=== PATIENT | male | born 2000 | race Caucasian/White ===

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

== ENCOUNTER 2019-07-29 05:56 | Observation (INO) | payer OTHER ==
[~2019-07-29] VITALS: Ht 185.4 cm; Wt 86.2 kg
[~2019-07-29 05:56] MED LIST: NORCO 5-325 TA1 EACH PO; REMERON30 MG PO; ULTRAM50 MG PO
[2019-07-29] MEDS ORDERED: AMITRIPTYLINE H50 MG PO (06:13)
[2019-07-29] MEDS ORDERED: IBUPROFEN600 MG PO (08:58)
[2019-07-29] MEDS ORDERED: HYDROCODON-ACE1 EA10 PO (08:58)
[2019-07-29] MEDS ORDERED: TYLENOL EXTRA500 MG PO (08:58)
--- NOTE | 2019-07-29 09:30 | NUR ---
07/29/19 0930 Rima Paganfany [id number] PATIENT TO PACU, APPEARS SLEEPING, NOT RESPONDING TO STIMULI. 100% 6L NC, EVEN RESPIRATIONS. DRESSING INTACT TO ALPHONSE AREA. 0859 PATIENT APPEARED TO BE HAVING SEIZURE, DR. COVINGTON TO BEDSIDE AND AIRAM HERMOSILLO CRNA TO BEDSIDE, ALONG WITH CHARGE NURSE ANDRA. AIRWAY PROTECTED OPEN WITH JAW THRUST. 2MG IV VERSED ADMINISTERED. SEIZURE APPEARED TO STOP. 904 SEIZURE APPEARS TO HAVE STARTED, CALL CARE TEAM BACK TO BEDSIDE. 2MG IV VERSED. SEIZURE APPEARED TO STOP. NOTED HR INCREASSES WITH SEIZURE. NO INCONTINENCE, NO TRAUMA NOTED TO MOUTH. DR. PASTOR TO [facility] WHO NOTED PATIENT HYPERFLEXIC.
--- NOTE | 2019-07-29 10:00 | NUR ---
PT ARRIVED TO CCU FROM PACU VIA STRETCHER. PT WAS CONFUSED AND DISORINATED TO SURROUNDINGS. PT ADMITTED TO CCU, BEDRAILS UP, CALL LIGHT IN REACH, AND GUARDS AT BEDSIDE. PT EXPERIENCING DYSPHASIA AFTER SURGERY, COMMUNICATES WITH SIGN LANGUAGE AND USING PEN AND PAPER. VITALS ARE STABLE. WILL CONTINUE TO MONITOR.
--- NOTE | 2019-07-29 11:00 | NUR ---
PT ALERT AND ORIENTATED, IS CONTNIUING TO USE PEN AND PAPER FOR COMMUNICATION. ASSESSMENT COMPLETED. WEAKNESS IN LUE, DR. MORROW HAS BEEN NOTIFIED. VITAL SIGNS STABLE. PT IS IN BED WATCHING TV, GUARD RAILS UP, AND CALL LIGHT WITHIN REACH. [facility] GUARDS AT BEDSIDE. WILL CONTINUE TO MONITOR.
--- NOTE | 2019-07-29 11:21 | NUR ---
Spoke with Dilan and correctional officers. Pt denies needs to return to [facility]. Shakes his head yes or no. Makes a garbled sound when asked if he is unable to speak. Denies use of DME. Per correctional officers he will return to [facility] informary when released.
--- NOTE | 2019-07-29 12:30 | NUR ---
PATIENT RESTING IN BED WITH THE GAURDS AT THE BEDSIDE. PATIENT WEARING LEG SHACKLES AT THIS TIME. PATIENT VOIDED AND URINAL EMPTIED. PATIENT IS MORE ALERT AND IS TALKING BETTER. LIME TRIMMER STRENGTH IS EQUAL IN EXTREMITIES. NO WEAKNESS NOTED. WILL CONTINUE TO CLOSELY MONITOR.
--- NOTE | 2019-07-29 14:00 | NUR ---
PATIENT RESTING IN BED AT THIS TIME WITH 2 GAURDS AT THE BEDSIDE. PATIENT DENIES ANY NEEDS. PATIENT CONTINUES TO HAVE DIFFICULTY FORMULATING WORDS, BUT HAS IMPROVED SINCE ADMISSION. WILL CONTINUE TO CLOSELY MONITOR.
--- NOTE | 2019-07-29 15:21 | NUR ---
MED REC COMPLETE
--- NOTE | 2019-07-29 15:26 | NUR ---
PATIENT CALLED REPORTING PAIN TO SURGICAL INCISION. CALLED MD PASTOR. PER MD MAY GIVE PRN PAIN MEDICATIONS. REVIEW MAR FOR ORDERES. WILL ADVANCE PATIENTS DIET AT THIS TIME.
--- NOTE | 2019-07-29 15:50 | NUR ---
PATIENT REPORTING 8/10 PAIN TO SURGICAL INCISION. GAVE PRN PAIN MEDICATION. PATIENT CONTINUES TO HAVE DIFICULTY SPEAKING, BUT IS ALERT AND ORIENTED AND WRITING WITH NO ISSUES. ANDRAE AT THE BEDSIDE. ROSALINE X2. WOUND CHECKED AND REMAINS C/D/I. WILL CONTINUE TO CLOSELY MONITOR.
--- NOTE | 2019-07-29 17:00 | NUR ---
PATIENET STATES PAIN IS IMPROVED WITH PRN PAIN MEDICATION. PATIENT NOW REPORTS PAIN 5/10. CLEAR LIQUID TRAY AT THE BEDSIDE. 2 GUARDS AT THE BEDSIDE. WILL CONTINUE TO CLOSELY MONITOR. NO OTHER NEEDS AT THIS TIME.
--- NOTE | 2019-07-29 18:27 | NUR ---
PATIENT TOELRATED CLEAR LIQUID TRAY. PATIENT DENEIS NAUSEA. ORDERED PATIENT SOME MORE FOOD. PATIENT DENIES ANY OTHER NEEDS. PATIENT SPEECH CONTINUES TO IMPROVE. PATIENT HAS NOT HAD ANY SIEZURE LIKE ACTIVITY SINCE ADMISSION. WILL CONTINUE TO CLOSELY MONITOR.
--- NOTE | 2019-07-29 19:21 | NUR ---
PT REPORT RECIEVED FROM CCU RN, CARE OF PATIENT ASSUMED AT THIS TIME.
--- NOTE | 2019-07-29 19:33 | NUR ---
IN ROOM TO ASSESS PATIENT, PT ALERT AND ORIENTED, RESPONDS TO QUESTIONS APPROPRIATELY. PT COMPLAINS HE IS FEELING SOME WEAKNESS ON LEFT SIDE, SPEECH SLIGHTLY SLURRED. PT HAS EQUAL END LATHE OPERATOR WITH BOTH HANDS, EQUAL SENSATION, ABLE TO HOLD BOTH ARMS OUT FOR A FULL COUNT WITH NO DRIFT. PLAN OF CARE FOR SHIFT DISCUSSED. PT VERBALIZED UNDERSTANDING OF PLAN. REPOSITIONED ON TO LEFT SIDE. CALL LIGHT WITHIN REACH. GAURDS REMAIN AT BEDSIDE.
--- NOTE | 2019-07-29 20:45 | NUR ---
PT STOOD AT BEDSIDE TO VOID. STAND BY ASSIST ONLY REQUIRED. STABLE ON FEET. BACK IN BED, REPOSITIONED. CALL LIGHT WITHIN REACH. NO FURTHER NEEDS AT THIS TIME.
--- NOTE | 2019-07-29 22:00 | NUR ---
PT RESTING WITH EYES CLOSED. BREATHING EVEN AN UNLABORED. GAURDS REMAIN AT BEDSIDE. NO NEEDS AT THIS TIME.
--- NOTE | 2019-07-29 22:59 | NUR ---
IN TO ADMINISTER PAIN MEDICATION AND ASSIST THE PT WITH REPOSITIONING. ASSESSMENT COMPLETED. PT HAS CALL LIGHT WITHIN REACH, GAURDS REMAIN AT BEDSIDE. NO FURTHER NEEDS AT THIS TIME.
--- NOTE | 2019-07-30 01:00 | NUR ---
PT RESTING IN HOSPITAL BED WITH EYES CLOSED, BREATHING EVEN AND UNLABORED. GAURDS REMAIN AT BEDSIDE. CALL LIGHT WITHIN REACH, NO FURTHER ASSESSED NEEDS A THIS TIME.
--- NOTE | 2019-07-30 02:30 | NUR ---
PT CONTINUES TO REST WITH EYES CLOSED. NO CHANGES IN VITAL SIGNS. NO SIGNS/ SYMPTOMS OF SEIZURE LIKE ACTIVITY. CALL LIGHT WITHIN REACH. NO FURTHER NEEDS AT THIS TIME
--- NOTE | 2019-07-30 03:33 | NUR ---
IN ROOM FOR ASSESSMENT. PT SPEECH IS NORMAL, NO COMPLAINTS OF PAIN AT THIS TIME. PT ALERT AND ORIENTED, DENIES ANY LEFT SIDED WEAKNESS. NEUROLOGICAL ASSESSMENT WNL. PT ASSISTED WITH REPOSITIONING IN STRETCHER. CALL LIGHT WITHIN REACH. NO FURTHER NEEDS AT THIS TIME.
--- NOTE | 2019-07-30 05:57 | NUR ---
PT HEART RATE DOWN TO 39 WHILE PATIENT SLEEPING DEEPLY. EASY TO AROUSE, PT IS ASYMPTOMATIC. NO COMPLAINTS OF DIZZINESS, PAIN OR DISCOMFORT AT THIS TIME.
--- NOTE | 2019-07-30 06:37 | NUR ---
PT AMBULATED TO BATHROOM IN ATTEMPT TO URINATE. STATES HE FEELS LIKE HE HAS TO PEE, BUT THE PRESSURE FROM TRYING TO URINATE WAS CAUSING 7/10 PAIN AT INCISION SITE. PAIN MEDICATION GIVEN. PLAN TO ATTEMPT TO URINATE AFTER PAIN MEDICATION BEGINS TO TAKE AFFECT.
--- NOTE | 2019-07-30 07:30 | NUR ---
Pt shift report received from production shift supervisor RN. Pt resting in bed with 2 guards at the bedside. No needs at this time.
[2019-07-30] MEDS ORDERED: KEPPRA500 MG PO (09:01)
--- NOTE | 2019-07-30 09:30 | NUR ---
Pt resting in bed, encouraged pt to get up and void. 2 guards at bedside. Pt shackles are in tack. Pt assessment completed. Pt reports pain from surgical incison, tolerable with rest at 4, pain increases to an 8 with activty. Breakfast was order. Vital signs completed. MD Clements saw patient. Will continue to monitor.
--- NOTE | 2019-07-30 11:00 | NUR ---
patient stated pain has increased. prn pain medication given. patient tolerated well. patient deneis any other needs at this time. will continue to closely monitor.
--- NOTE | 2019-07-30 12:30 | NUR ---
PATIENT REPORT CALLED TO [facility] RATNA ANGEL. ALL QUESTIONS ANSWERED. PLACED PRESCRIPTIONS AND DOCUMENTATIONS IN ENVELOPE AND SEALED. ALL QUESTIONS ANSWERED. MD COVINGTON IN TO SEE PATIENT PRIOR TO DISCJHARGE AND REVIEWED INSTRUCTIONS WITH PATIENT ABOUT WOUND CARE AND ACTIVITY RESTRICTIONS. LUNCH AT THE BEDSIDE. WILL CONTINUE TO CLOSELY MONITOR.
--- NOTE | 2019-07-30 12:45 | NUR ---
IV D'CD. Pt documentation give to guards, all belongs gathered, guards at bedside to assist pt with getting dressed to discharge. Pt was wheeled to the lobby in a wheelchair by nursing staff and [facility] guards.
--- NOTE | 2019-07-30 13:39 | PATH ---
[facility] [address] [place], [place] [address] Signed SPECIMEN(S): A PILONIDAL CYST SPECIMEN SOURCE: A. PILONIDAL CYST CLINICAL HISTORY: Pilonidal cyst. FINAL PATHOLOGIC DIAGNOSIS: Pilonidal cyst, excision: - Benign skin with underlying deep dermal granulation tissue formation, chronic inflammation, and fragments of hair, consistent with ruptured pilonidal cyst. NAL:cml:C2NR MICROSCOPIC EXAMINATION: Histologic sections of all submitted blocks are examined by light microscopy. These findings, together with the gross examination, support the pathologic diagnosis. GROSS DESCRIPTION: The specimen, labeled "KP" and "pilonidal cyst" on the requisition, is received in formalin and consists of a 4.2 x 2.6 x 1.5 cm portion of fibrofatty tissue with an attached 4 x 0.8 cm pink to echols wrinkled ellipse of skin. The skin surface demonstrates a linear dark red crease that measures 0.8 cm in length. The cut surfaces beneath this crease demonstrates an exposed cavity/tract that measures 1.8 x 1.3 x 1.2 cm. The tract contains abundant soft dark red tissue and multiple light hairs. The remaining cut surfaces of the specimen are mottled thomas-yellow. Warehouse Order Filler sections are submitted in cassette A1. SS (under the direct supervision of a pathologist) The Gross Description was prepared using a voice recognition system. The report was reviewed for accuracy; however, sound-alike word errors, addition and/or deletions may occur. If there is any question about this report, please contact Client Services. PERFORMING LABORATORY: The technical component was performed by [facility], [address] [place] [id number] (Location Manager: Diana Joseph MD; CLIA# [id number]). Professional interpretation was performed by PATIENT NAME: LAWANDA VALDES PATHOLOGY DATE OF : [birth year] REPORT #: [id number] PHYSICIAN: LETICIAYTE PATHOLOGY PCP: MARISSA GUAJARDO MD REPORT IS CONFIDENTIAL AND NOT TO BE RELEASED WITHOUT AUTHORIZATION [facility] [address] [place], [place] [address] Signed [facility], [facility] branch, [address] [address] (CLIA# [id number]). Diagnostician: Dennise Bhardwaj MD Pathologist Electronically Signed 07/30/2019 Copies: ~ PATIENT NAME: LAWANDA VALDES PATHOLOGY DATE OF : [birth year] REPORT #: [id number] PHYSICIAN: ALFREDO PATHOLOGY PCP: MARISSA GUAJARDO MD REPORT IS CONFIDENTIAL AND NOT TO BE RELEASED WITHOUT AUTHORIZATION
--- NOTE | 2019-07-30 18:31 | OR ---
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 POSTOPERATIVE DIAGNOSIS: Pilonidal disease internatal cleft at least two areas of sinus drainage. PROCEDURES: 1. Pilonidal cyst excision with irrigation. 2. Deep subcutaneous flap mobilization and midline reapproximation with primary closure. ANESTHESIA: General endotracheal; Airam Epps CRNA and local 20 mL of 0.25% Marcaine with epinephrine. INDICATION: This 19-year-old white man is a prisoner at [facility] and a patient of Dr. Guajardo and Tiffani Kwok. 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 It has been excoriated and had drainage. He has had persistent drainage from this area and clinical examination shows this likely to be a pilonidal sinus. He is admitted at this time to undergo definitive excision of the pilonidal cyst disease, whether large or small. The patient strongly prefers to avoid wound care dressing changes if possible and if primary closure is feasible, it will be undertaken in addition to the excision. He understands the risks of bleeding, infection, recurrent disease and other unforeseen complications and wished to proceed. FINDINGS: The dominant pilonidal sinus was quite obvious and had some debris within it, but no active abscess. Superior to that was another pilonidal sinus pit that was interrogated as well. Excision of the pilonidal cyst disease was undertaken down to the post-sacral fascia. All the wound packing was anticipated and attempt for closure was deemed reasonable based on his preferences and subcutaneous flaps were elevated a short distance laterally allowing for reapproximation of the midline subcutaneous tissue and a layered closure accomplished. Additionally, Dermabond was applied to the wound once closed. DESCRIPTION OF PROCEDURE: Electronically Signed By: AIRAM COVINGTON MD 07/30/19 1831 PATIENT NAME: LAWANDA VALDES OPERATIVE REPORT DATE OF : [birth year] REPORT #: [id number] PHYSICIAN: AIRAM COVINGTON MD PCP: MARISSA GUAJARDO MD REPORT IS CONFIDENTIAL AND NOT TO BE RELEASED WITHOUT AUTHORIZATION [facility] [address] [place], [place] [address] Signed The patient was brought to the operating room, given a general endotracheal anesthetic and placed in the prone jackknife position with all due care with careful padding of pressure points and so forth. The buttocks were taped apart and photographs were taken. The internatal cleft and perineal area posteriorly were clipped and prepared with a DuraPrep type solution. A lacrimal probe was passed through the superior pit as well as to the dominant inferior sinus. There appeared to be separate areas of pilonidal disease. An elliptical excision was undertaken with electrocautery down to the post-sacral fascia with all due care minimizing the amount of tissue excised. The cystic area was transected and nest of hairs was noted within it, but no abscess fluid proper. Irrigation was undertaken copiously. Flaps were developed superficial to the post-sacral fascia laterally on each side. The deep subcutaneous layer was then secured with interrupted 2-0 Vicryl suture including pexing to the posterior sacral fascia. The wound was closed in layers more fully after irrigation and Assurity there was no residual debris. The skin was then closed with a running subcuticular 4-0 Vicryl. The wound was covered with Dermabond down to the inferior aspect. Plain gauze dressing was then applied. The patient tolerated procedure well, was taken to recovery room in good condition. MD JAYCEE Mcintosh/KYARA /[id number] cc: MD Tiffani Zapata [facility] Copies: MARISSA GUAJARDO MD ~ Electronically Signed By: AIRAM COVINGTON MD 07/30/19 1831 PATIENT NAME: LUCIOMAGUELAWANDA JAMES OPERATIVE REPORT DATE OF : [birth year] REPORT #: [id number] PHYSICIAN: AIRAM COVINGTON MD PCP: MARISSA GUAJARDO MD REPORT IS CONFIDENTIAL AND NOT TO BE RELEASED WITHOUT AUTHORIZATION
== END 2019-07-30 12:55 | disposition home or self-care (01) ==
LOC: OPS 05:56 → DS 05:56 → CCU 05:56 → OPS 06:45 → CCU 10:11 → OPS 10:12 → CCU 10:13
PROVIDERS: Surgery; ADMIT Internal Medicine
PROC: 0JB90ZZ Excision of Buttock Subcutaneous Tissue and Fascia, Open Approach (ICD-10-PCS; principal; 2019-07-29 06:45)
DX: L05.91 Pilonidal cyst without abscess (principal); G40.409 Other generalized epilepsy and epileptic syndromes, not intractable, without status epilepticus; F32.9 Major depressive disorder, single episode, unspecified; F41.9 Anxiety disorder, unspecified; Z88.5 Allergy status to narcotic agent; Z79.899 Other long term (current) drug therapy
CPT/HCPCS: 00300; 36415; 80048; 83735; 84100; 85025; 96365; G0378; J0330; J0690; J1100; J1885; J1953; J2060; J2250; J2405; J2704; J3010; J3360; J3480; J7120; J7121